=== PATIENT | male | born 1980 | race Two or more races ===

== ENCOUNTER 2019-02-14 22:58 | Emergency (ER) | payer OTHER ==
[~2019-02-14] VITALS: Ht 175.3 cm; Wt 117.9 kg
[2019-02-14 23:09] VITALS: BP 122/69
[2019-02-14] MEDS ORDERED: Lidocaine 1% MPF 10mg/ml 5ml INJ ONE (23:15)
[2019-02-14] MEDS ORDERED: Neosporin Oint Ud Pkt TOP ONE (23:15)
[2019-02-14] MEDS ORDERED: ceFAZolin 1gm/50ml Premix 50 ML IV ONE (23:15)
[2019-02-14] MEDS ORDERED: Tetanus/Diptheria/Pertussis IM ONE (23:15)
[2019-02-14 23:37] LABS: BASOPHILS % (AUTO) 0.9 % (0.0-2.0); EOSINOPHILS % (AUTO) 1.6 % (0.0-3.0); HEMOGLOBIN 14.9 G/DL (14.2-18.0); MEAN CORPUSCULAR VOLUME 80 FL (80-99); MONOCYTES % (AUTO) 8.6 % (1.0-10.0); PLATELET COUNT 194 K/UL (150-450); RED BLOOD COUNT 5.63 M/UL (4.70-6.10); RED CELL DISTRIBUTION WIDTH 11.9 % (11.6-14.8); WHITE BLOOD COUNT 12.1 K/UL (4.8-10.8)
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
[2019-02-14 23:44] LABS: ANION GAP 13 mmol/L (5-15); BLOOD UREA NITROGEN 14 mg/dL (7-18); CALCIUM 8.9 MG/DL (8.5-10.1); CARBON DIOXIDE 25 MMOL/L (21-32); CHLORIDE 104 MMOL/L (98-107); CREATININE 1.3 MG/DL (0.55-1.30); POTASSIUM 3.3 MMOL/L (3.5-5.1); SODIUM 142 MMOL/L (136-145)
[2019-02-14 23:47] LABS: INR 0.9 (0.9-1.1)
[2019-02-14 23:48] LABS: ALANINE AMINOTRANSFERASE 89 U/L (12-78); ALBUMIN 4.1 G/DL (3.4-5.0); ALBUMIN/GLOBULIN RATIO 1.1 (1.0-2.7); ALKALINE PHOSPHATASE 106 U/L (46-116); ASPARTATE AMINO TRANSFERASE 35 U/L (15-37); BILIRUBIN,TOTAL 0.3 MG/DL (0.2-1.0)
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
[2019-02-15 01:42] VITALS: BP 121/68
--- NOTE | 2019-02-15 01:43 | NUR ---
ER Nurse Note: All orders completed per ERMD orders. Pt returned from CT and awaiting results. Pt a&ox4, VSS, no signs of distress. Pt was cleaned as best as possible; laceration on left thumb; ERMD aware. Kirk, friend, contact information . Pt is pending transfer to [place] for further continutiy of care. All safety measures met; will continue to monitor.
--- NOTE | 2019-02-15 01:58 | NUR ---
Cervical and maxilofacial CT reports faxed to [facility] [phone] as requested by [facility].
--- NOTE | 2019-02-15 03:12 | NUR ---
Result of head CT faxed to [place] [facility].
[2019-02-15 03:19] VITALS: BP 117/66
--- NOTE | 2019-02-15 03:20 | NUR ---
ER Nurse Note: CT of head taken and faxed over. Pt cleaned and ointment applied. Pt VSS, denies pain, no signs of further distress. All orders completed per SUNNY harris. All safety measures completed; will continue to [facility].
--- NOTE | 2019-02-15 03:20 | NUR ---
Confirmed with [facility]- they have received the head CT fax.
--- NOTE | 2019-02-15 04:27 | NUR ---
ER Nurse Note: Wound care done; along with wound photo uploaded. ERMD sutured pt left thumb; pt tolerated well. Pt a&ox4, VSS, denies pain. Pt calm, cooperative. Will continue to [facility].
--- NOTE | 2019-02-15 04:44 | NUR ---
ER Nurse Note: Report given to EDDIE Stevenson in [place] for continutiy of care. ETA for transport is 0500. Pt wounds are cleaned and gauzed. Will continue to [facility].
[2019-02-15 05:20] VITALS: BP 126/68
--- NOTE | 2019-02-15 05:20 | NUR ---
ER Nurse Note: Pt cleaned before transport and left with BLS. Pt left with all belongings. [place] was notifed that pt is on route.
== END 2019-02-15 05:20 | disposition short-term general hospital (02) ==
LOC: EDBD 22:58 → EMR 23:30
DX: S02.2XXB Fracture of nasal bones, initial encounter for open fracture (principal); S02.92XB Unspecified fracture of facial bones, initial encounter for open fracture; S61.012A Laceration without foreign body of left thumb without damage to nail, initial encounter; V00.142A Scooter (nonmotorized) colliding with stationary object, initial encounter; Y92.9 Unspecified place or not applicable; Z23 Encounter for immunization
CPT/HCPCS: 12001; 12051; 36415; 70450; 70486; 72125; 80053; 85025; 85610; 85730; 90471; 90715; 96365; 99284; G0480; J0690; 80329